=== PATIENT | female | born 1980 | race Caucasian/White ===

== ENCOUNTER 2017-08-12 23:35 | Emergency (ER) | payer MEDICAID ==
--- NOTE | 2017-08-13 00:05 | EDM.PDOC ---
ED HPI GENERAL MEDICAL PROBLEM - General Chief Complaint: Lower Extremity Injury/Pain Stated Complaint: fell dancing swollen R) ankle/foot Time Seen by Provider: 08/12/17 23:35 Source of Information: Reports: Patient History Limitations: Reports: No Limitations - History of Present Illness INITIAL COMMENTS - FREE TEXT/NARRATIVE: Patient is a 36-year-old who is seen in the ER with chief complaint of right ankle pain x-rays revealed a bimalleolar fracture at this time spoke with Dr. Mora went me to attempt reduction at this time we attempt a reduction will x -ray post reduction to see how it looks and place her in a Cam Walker and crutches Dr. Mora will call her for follow-up appointment. Onset: Sudden Duration: Minutes:, Constant (Pain) Location: Reports: Upper Extremity, Right Quality: Reports: Sharp Severity: Moderate Improves with: Reports: Cold Therapy, Other (Traction) Worsens with: Reports: None Context: Reports: Trauma Associated Symptoms: Reports: No Other Symptoms - Related Data Allergies Allergy/AdvReac Type Severity Reaction Status Date / Time Penicillins Allergy Hives Verified 08/12/17 23:36 Home Meds: Home Meds . [No Known Home Meds] 08/12/17 [History] Review of Systems - Review of Systems Review Of Systems: See Below Constitutional: Reports: No Symptoms Eyes: Reports: No Symptoms Ears: Reports: No Symptoms Nose: Reports: No Symptoms Mouth/Throat: Reports: No Symptoms Respiratory: Reports: No Symptoms Cardiovascular: Reports: No Symptoms GI/Abdominal: Reports: No Symptoms Genitourinary: Reports: No Symptoms Musculoskeletal: Reports: No Symptoms Skin: Reports: No Symptoms Neurological: Reports: No Symptoms Psychiatric: Reports: No Symptoms ED EXAM, GENERAL - Physical Exam Exam: See Below Exam Limited By: No Limitations General Appearance: Alert, WD/WN, No Apparent Distress Ears: Normal External Exam, Normal Canal, Hearing Grossly Normal, Normal TMs Nose: Normal Inspection, Normal Mucosa, No Blood Throat/Mouth: Normal Inspection, Normal Lips, Normal Teeth, Normal Gums, Normal Oropharynx, Normal Voice, No Airway Compromise Head: Atraumatic, Normocephalic Neck: Normal Inspection, Supple, Non-Tender, Full Range of Motion Respiratory/Chest: No Respiratory Distress, Lungs Clear, Normal Breath Sounds, No Accessory Muscle Use, Chest Non-Tender Cardiovascular: Normal Peripheral Pulses, Regular Rate, Rhythm, No Edema, No Gallop, No JVD, No Murmur, No Rub GI/Abdominal: Normal Bowel Sounds, Soft, Non-Tender, No Organomegaly, No Distention, No Abnormal Bruit, No Mass (Female) Exam: Deferred Rectal (Female) Exam: Deferred Back Exam: Normal Inspection, Full Range of Motion, NT Extremities: Leg Pain (Right ankle pain), Other (Ankle swelling). No: Normal Range of Motion Course - Vital Signs Last Recorded V/S: Last Vital Signs Temp 98.1 F 08/12/17 23:35 Pulse 102 H 08/12/17 23:35 Resp 18 08/12/17 23:35 BP 102/45 L 08/12/17 23:35 Pulse Ox 93 L 08/12/17 23:35 - Orders/Labs/Meds Orders: Active Orders 24 hr Category Date Time Status Ankle Min 3V Rt [CR] Stat Exams 08/12/17 23:37 Ordered Ankle Min 3V Rt [CR] Stat Exams 08/13/17 00:06 Ordered Departure - Departure Time of Disposition: 00:29 Disposition: Home, Self-Care 01 Condition: Fair Clinical Impression: Bimalleolar fracture of right ankle Qualifiers: Encounter type: initial encounter Fracture type: closed Qualified Code(s): S82.841A - Displaced bimalleolar fracture of right lower leg, initial encounter for closed fracture - Discharge Information Forms: ED Department Discharge Care Plan Goals: Patient will be sent home on Cam Walker with crutches he is to ice it a place her on Ultram for pain syndrome discussed with Dr. Du orthopedics will call for follow-up appointment - My Orders Last 24 Hours: My Active Orders 08/12/17 23:37 Ankle Min 3V Rt [CR] Stat 08/13/17 00:06 Ankle Min 3V Rt [CR] Stat - Assessment/Plan Last 24 Hours: My Active Orders 08/12/17 23:37 Ankle Min 3V Rt [CR] Stat 08/13/17 00:06 Ankle Min 3V Rt [CR] Stat
== END 2017-08-13 00:39 | disposition home or self-care (01) ==
LOC: MERGE 23:35 → LL.ED 23:35
DX: S82.851A Displaced trimalleolar fracture of right lower leg, initial encounter for closed fracture (principal); Z88.0 Allergy status to penicillin; W19.XXXA Unspecified fall, initial encounter; Y93.41 Activity, dancing
CPT/HCPCS: 27818; 73610-RT; 99284